=== PATIENT | female | born 1970 | race Caucasian/White ===

== ENCOUNTER 2017-07-27 16:51 | Emergency (ER) | payer MEDICAID ==
[~2017-07-27] VITALS: Ht 157.5 cm; Wt 64.6 kg
[~2017-07-27 16:51] MED LIST: BEN25 PO; FAMO-96 PO; LEVO50TA74 PO
[2017-07-27 16:53] VITALS: Ht 157.5 cm; Wt 64.6 kg
[2017-07-27] MEDS ORDERED: FLUORESCEIN STRIP RIGHT EYE ONE (17:30)
[2017-07-27] MEDS ORDERED: TETRACAINE 0.5% 4 ML OPH RIGHT EYE ONE (17:30)
[2017-07-27] MEDS ORDERED: CPR3OO3.5 RIGHT EYE (17:59)
[2017-07-27 18:33] VITALS: BP 116/79; PULSE 66; RESP 14; TEMP 98.8
--- NOTE | 2017-07-27 23:15 | ERD ---
ER Documentation Chief Complaint Chief Complaint Complains of right eye pain x 3 days HPI Patient is a 47-year-old female presenting to the emergency department with complaints of right eye pain. The patient states she accidentally poked herself in the eye with her fingernail and then redness appeared. Symptoms are intermittent and worse when she moves her eye. Associated with pain. She denies any visual acuity changes. She does not wear glasses or contacts. No fevers, chills, or other symptoms reported currently. ROS All systems reviewed and are negative except as per history of present illness. Medications Home Meds Active Scripts Ciprofloxacin Opht* (Ciloxan*) 0.3%-3.5 Opht Oint, 1 APPLIC RIGHT EYE TID for 7 Days, #1 BOTTLE Prov:ROBBI TAO PA-C 07/27/17 Diphenhydramine Hcl* (Benadryl*) 25 Mg Cap, 25 MG PO Q6 Y for ITCHING/RASH, #30 TAB Prov:HERNAN JAMESON PA-C 06/30/16 Famotidine* (Pepcid*) 20 Mg Tablet, 20 MG PO BID, #30 TAB Prov:HERNAN JAMESON PA-C 06/30/16 Reported Medications Levothyroxine Sodium* (Levothyroxine Sodium*) 50 Mcg Tablet, PO DAILY 08/20/11 Allergies Allergies: Coded Allergies: morphine (Verified Allergy, Mild, 07/27/17) PMhx/Soc History of Surgery: Yes (GALLBLADDER, TUBAL LIGATION) Anesthesia Reaction: No Hx Neurological Disorder: No Hx Respiratory Disorders: No Hx Cardiac Disorders: No Hx Psychiatric Problems: No Hx Miscellaneous Medical Probl: Yes (HYPOTHYROID) Hx Alcohol Use: No Hx Substance Use: No Hx Tobacco Use: No Smoking Status: Never smoker Physical Exam Vitals Vital Signs Date Time Temp Pulse Resp B/P Pulse Ox O2 Delivery O2 Flow Rate FiO2 07/27/17 18:33 98.8 66 14 116/79 100 Room Air 07/27/17 16:53 99.1 68 20 124/68 98 Physical Exam Const: Nontoxic, well-appearing female in no acute distress. Head: Atraumatic Eyes: Gentle injection of the right eye. Extraocular movements intact bilaterally. ENT: Normal External Ears, Nose and Mouth. Neur: Awake and alert Psych: Normal Mood and Affect Results 24 hrs Current Medications Medications (Trade) Dose Ordered Sig/Alcira Route PRN Reason Start Time Stop Time Status Last Admin Dose Admin Fluorescein Sodium (Lsflc-D-Tfkye) 1 strip ONCE ONCE RIGHT EYE 07/27/17 17:30 11 17:31 DC Tetracaine HCl (Tetracaine 0.5% Steri-Unit Penny) 1 drop ONCE ONCE RIGHT EYE 07/27/17 17:30 11 17:31 DC Procedures/MDM Patient is a 47-year-old female presenting to the emergency department with right eye injury. Physical examination shows some injection but no evidence of corneal ulcer. Patient stable for discharge with prescription for ciprofloxacin ophthalmic. Close follow-up with ophthalmology. Patient agreed with discharge plan a diagnosis. Eye Exam w/ Wood's lamp: Visual Acuity: No significant abnormalities. Visual Mcelroy: Intact in all four quadrants bilaterally Lac ducts/glands: No swelling Lids w/ evertion: Normal, no foreign body Conj/[place]: Clear, negative Fluorescein/Iva's Anterior Chamber: Clear No evidence of life-threatening pathology at time of discharge. Pt/family in agreement with discharge plan/diagnosis. Pt/family advised to return immediately with any new or worsening symptoms. Follow-up with primary care physician within the next 1-2 days. Disclaimer: Inadvertent spelling and grammatical errors are likely due to EHR/ dictation software use and do not reflect on the overall quality of patient care. Also, please note that the electronic time recorded on this note does not necessarily reflect the actual time of the patient encounter. Departure Diagnosis: Primary Impression: Conjunctivitis Conjunctivitis type: acute Acute conjunctivitis type: unspecified Laterality: unspecified laterality Qualified Code: H10.30 - Acute conjunctivitis, unspecified acute conjunctivitis type, unspecified laterality Condition: Fair Patient Instructions: Conjunctivitis, Non-Specific, Subconjunctival Hemorrhage [facility] Usted se schroeder hecho un examen mdico de control que le indica que no est en andres condicin que requiera tratamiento urgente en el Departamento de Emergencia. Un estudio ms profundo y el tratamiento de britt condicin pueden esperar sin ningn riesgo hasta que usted sea atendida/o en el consultorio de britt mdico o andres cl vanda. Es responsabilidad suya arreglar andres toni para el seguimiento del nahum. MANEJO DE CONDICIONES NO URGENTES EN EL FUTURO 1) Si usted tiene un mdico de atencin primaria: Usted debera llamar a britt mdico de atencin primaria antes de venir al departamento de emergencia. Despus de las horas de consultorio, britt doctor o britt asociado/a est disponible por telfono. El mdico o enfermero de rocky en el servicio telefnico puede asesorarle por joao medio para atender el problema, o nahum contrario se puede programar andres toni. 2) Si usted no tiene un mdico de atencin primaria: Llame al mdico o clnica de referencia que aparece abajo david las horas de consultorio para hacer andres toni para que le vean. CLINICAS: [facility] [phone] [facility] [phone] [facility] [phone] [facility] [facility] [phone] [facility] [address] [address] [place] [phone] [facility]. [phone] [facility] Hours: Mon - Fri 9:00 AM - 5:00 PM Additional Instructions: Follow-up with the [facility] in 1-2 days if symptoms persist or worsen. No mas mejor en 2-3 baltazar, regresar. Mas peor en 24 horas, regresear rapidamente. Ir a doctor primario en 1-2 baltazar. Usar instrucciones cuando zaynab medicamento. ROBBI TAO PA-C Jul 27, 2017 23:15
--- NOTE | 2017-07-27 23:15 | ERD ---
ER Documentation Chief Complaint Chief Complaint Complains of right eye pain x 3 days HPI Patient is a 47-year-old female presenting to the emergency department with complaints of right eye pain. The patient states she accidentally poked herself in the eye with her fingernail and then redness appeared. Symptoms are intermittent and worse when she moves her eye. Associated with pain. She denies any visual acuity changes. She does not wear glasses or contacts. No fevers, chills, or other symptoms reported currently. ROS All systems reviewed and are negative except as per history of present illness. Medications Home Meds Active Scripts Ciprofloxacin Opht* (Ciloxan*) 0.3%-3.5 Opht Oint, 1 APPLIC RIGHT EYE TID for 7 Days, #1 BOTTLE Prov:ROBBI TAO PA-C 07/27/17 Diphenhydramine Hcl* (Benadryl*) 25 Mg Cap, 25 MG PO Q6 Y for ITCHING/RASH, #30 TAB Prov:HERNAN JAMESON PA-C 06/30/16 Famotidine* (Pepcid*) 20 Mg Tablet, 20 MG PO BID, #30 TAB Prov:HERNAN JAMESON PA-C 06/30/16 Reported Medications Levothyroxine Sodium* (Levothyroxine Sodium*) 50 Mcg Tablet, PO DAILY 08/20/11 Allergies Allergies: Coded Allergies: morphine (Verified Allergy, Mild, 07/27/17) PMhx/Soc History of Surgery: Yes (GALLBLADDER, TUBAL LIGATION) Anesthesia Reaction: No Hx Neurological Disorder: No Hx Respiratory Disorders: No Hx Cardiac Disorders: No Hx Psychiatric Problems: No Hx Miscellaneous Medical Probl: Yes (HYPOTHYROID) Hx Alcohol Use: No Hx Substance Use: No Hx Tobacco Use: No Smoking Status: Never smoker Physical Exam Vitals Vital Signs Date Time Temp Pulse Resp B/P Pulse Ox O2 Delivery O2 Flow Rate FiO2 07/27/17 18:33 98.8 66 14 116/79 100 Room Air 07/27/17 16:53 99.1 68 20 124/68 98 Physical Exam Const: Nontoxic, well-appearing female in no acute distress. Head: Atraumatic Eyes: Gentle injection of the right eye. Extraocular movements intact bilaterally. ENT: Normal External Ears, Nose and Mouth. Neur: Awake and alert Psych: Normal Mood and Affect Results 24 hrs Current Medications Medications (Trade) Dose Ordered Sig/Alcira Route PRN Reason Start Time Stop Time Status Last Admin Dose Admin Fluorescein Sodium (Zrdoc-M-Jyswh) 1 strip ONCE ONCE RIGHT EYE 07/27/17 17:30 11 17:31 DC Tetracaine HCl (Tetracaine 0.5% Steri-Unit Penny) 1 drop ONCE ONCE RIGHT EYE 07/27/17 17:30 11 17:31 DC Procedures/MDM Patient is a 47-year-old female presenting to the emergency department with right eye injury. Physical examination shows some injection but no evidence of corneal ulcer. Patient stable for discharge with prescription for ciprofloxacin ophthalmic. Close follow-up with ophthalmology. Patient agreed with discharge plan a diagnosis. Eye Exam w/ Wood's lamp: Visual Acuity: No significant abnormalities. Visual Mcelroy: Intact in all four quadrants bilaterally Lac ducts/glands: No swelling Lids w/ evertion: Normal, no foreign body Conj/[place]: Clear, negative Fluorescein/Iva's Anterior Chamber: Clear No evidence of life-threatening pathology at time of discharge. Pt/family in agreement with discharge plan/diagnosis. Pt/family advised to return immediately with any new or worsening symptoms. Follow-up with primary care physician within the next 1-2 days. Disclaimer: Inadvertent spelling and grammatical errors are likely due to EHR/ dictation software use and do not reflect on the overall quality of patient care. Also, please note that the electronic time recorded on this note does not necessarily reflect the actual time of the patient encounter. Departure Diagnosis: Primary Impression: Conjunctivitis Conjunctivitis type: acute Acute conjunctivitis type: unspecified Laterality: unspecified laterality Qualified Code: H10.30 - Acute conjunctivitis, unspecified acute conjunctivitis type, unspecified laterality Condition: Fair Patient Instructions: Conjunctivitis, Non-Specific, Subconjunctival Hemorrhage Ref[facility]: [facility] Usted se schroeder hecho un examen mdico de control que le indica que no est en andres condicin que requiera tratamiento urgente en el Departamento de Emergencia. Un estudio ms profundo y el tratamiento de britt condicin pueden esperar sin ningn riesgo hasta que usted sea atendida/o en el consultorio de britt mdico o andres cl vanda. Es responsabilidad suya arreglar andres toni para el seguimiento del nahum. MANEJO DE CONDICIONES NO URGENTES EN EL FUTURO 1) Si usted tiene un mdico de atencin primaria: Usted debera llamar a britt mdico de atencin primaria antes de venir al departamento de emergencia. Despus de las horas de consultorio, britt doctor o britt asociado/a est disponible por telfono. El mdico o enfermero de rocky en el servicio telefnico puede asesorarle por joao medio para atender el problema, o nahum contrario se puede programar andres toni. 2) Si usted no tiene un mdico de atencin primaria: Llame al mdico o clnica de referencia que aparece abajo david las horas de consultorio para hacer andres toni para que le vean. CLINICAS: [facility] [phone] [facility] [phone] [facility] [phone] [address] [facility] [facility] [phone] [place] [phone] [facility] [phone] [facility] Hours: Mon - Fri 9:00 AM - 5:00 PM Additional Instructions: Follow-up with the [facility] in 1-2 days if symptoms persist or worsen. No mas mejor en 2-3 baltazar, regresar. Mas peor en 24 horas, regresear rapidamente. Ir a doctor primario en 1-2 baltazar. Usar instrucciones cuando zaynab medicamento. ROBBI TAO PA-C Jul 27, 2017 23:15
--- NOTE | 2017-07-27 23:15 | ERD ---
ER Documentation Chief Complaint Chief Complaint Complains of right eye pain x 3 days HPI Patient is a 47-year-old female presenting to the emergency department with complaints of right eye pain. The patient states she accidentally poked herself in the eye with her fingernail and then redness appeared. Symptoms are intermittent and worse when she moves her eye. Associated with pain. She denies any visual acuity changes. She does not wear glasses or contacts. No fevers, chills, or other symptoms reported currently. ROS All systems reviewed and are negative except as per history of present illness. Medications Home Meds Active Scripts Ciprofloxacin Opht* (Ciloxan*) 0.3%-3.5 Opht Oint, 1 APPLIC RIGHT EYE TID for 7 Days, #1 BOTTLE Prov:ROBBI TAO PA-C 07/27/17 Diphenhydramine Hcl* (Benadryl*) 25 Mg Cap, 25 MG PO Q6 Y for ITCHING/RASH, #30 TAB Prov:HERNAN JAMESON PA-C 06/30/16 Famotidine* (Pepcid*) 20 Mg Tablet, 20 MG PO BID, #30 TAB Prov:HERNAN JAMESON PA-C 06/30/16 Reported Medications Levothyroxine Sodium* (Levothyroxine Sodium*) 50 Mcg Tablet, PO DAILY 08/20/11 Allergies Allergies: Coded Allergies: morphine (Verified Allergy, Mild, 07/27/17) PMhx/Soc History of Surgery: Yes (GALLBLADDER, TUBAL LIGATION) Anesthesia Reaction: No Hx Neurological Disorder: No Hx Respiratory Disorders: No Hx Cardiac Disorders: No Hx Psychiatric Problems: No Hx Miscellaneous Medical Probl: Yes (HYPOTHYROID) Hx Alcohol Use: No Hx Substance Use: No Hx Tobacco Use: No Smoking Status: Never smoker Physical Exam Vitals Vital Signs Date Time Temp Pulse Resp B/P Pulse Ox O2 Delivery O2 Flow Rate FiO2 07/27/17 18:33 98.8 66 14 116/79 100 Room Air 07/27/17 16:53 99.1 68 20 124/68 98 Physical Exam Const: Nontoxic, well-appearing female in no acute distress. Head: Atraumatic Eyes: Gentle injection of the right eye. Extraocular movements intact bilaterally. ENT: Normal External Ears, Nose and Mouth. Neur: Awake and alert Psych: Normal Mood and Affect Results 24 hrs Current Medications Medications (Trade) Dose Ordered Sig/Alcira Route PRN Reason Start Time Stop Time Status Last Admin Dose Admin Fluorescein Sodium (Vvidn-V-Fbrmk) 1 strip ONCE ONCE RIGHT EYE 07/27/17 17:30 11 17:31 DC Tetracaine HCl (Tetracaine 0.5% Steri-Unit Penny) 1 drop ONCE ONCE RIGHT EYE 07/27/17 17:30 11 17:31 DC Procedures/MDM Patient is a 47-year-old female presenting to the emergency department with right eye injury. Physical examination shows some injection but no evidence of corneal ulcer. Patient stable for discharge with prescription for ciprofloxacin ophthalmic. Close follow-up with ophthalmology. Patient agreed with discharge plan a diagnosis. Eye Exam w/ Wood's lamp: Visual Acuity: No significant abnormalities. Visual Mcelroy: Intact in all four quadrants bilaterally Lac ducts/glands: No swelling Lids w/ evertion: Normal, no foreign body Conj/[place]: Clear, negative Fluorescein/Iva's Anterior Chamber: Clear No evidence of life-threatening pathology at time of discharge. Pt/family in agreement with discharge plan/diagnosis. Pt/family advised to return immediately with any new or worsening symptoms. Follow-up with primary care physician within the next 1-2 days. Disclaimer: Inadvertent spelling and grammatical errors are likely due to EHR/ dictation software use and do not reflect on the overall quality of patient care. Also, please note that the electronic time recorded on this note does not necessarily reflect the actual time of the patient encounter. Departure Diagnosis: Primary Impression: Conjunctivitis Conjunctivitis type: acute Acute conjunctivitis type: unspecified Laterality: unspecified laterality Qualified Code: H10.30 - Acute conjunctivitis, unspecified acute conjunctivitis type, unspecified laterality Condition: Fair Patient Instructions: Conjunctivitis, Non-Specific, Subconjunctival Hemorrhage Ref[facility]: [facility] Usted se schroeder hecho un examen mdico de control que le indica que no est en andres condicin que requiera tratamiento urgente en el Departamento de Emergencia. Un estudio ms profundo y el tratamiento de britt condicin pueden esperar sin ningn riesgo hasta que usted sea atendida/o en el consultorio de britt mdico o andres cl vanda. Es responsabilidad suya arreglar andres toni para el seguimiento del nahum. MANEJO DE CONDICIONES NO URGENTES EN EL FUTURO 1) Si usted tiene un mdico de atencin primaria: Usted debera llamar a britt mdico de atencin primaria antes de venir al departamento de emergencia. Despus de las horas de consultorio, britt doctor o britt asociado/a est disponible por telfono. El mdico o enfermero de rocky en el servicio telefnico puede asesorarle por joao medio para atender el problema, o nahum contrario se puede programar andres toni. 2) Si usted no tiene un mdico de atencin primaria: Llame al mdico o clnica de referencia que aparece abajo david las horas de consultorio para hacer andres toni para que le vean. CLINICAS: [facility] [phone] [facility] [phone] [facility] [phone] [address] [facility] [facility] [facility] [phone] [facility] [facility] [place] [phone] [facility] [phone] [facility] Hours: Mon - Fri 9:00 AM - 5:00 PM Additional Instructions: Follow-up with the [facility] in 1-2 days if symptoms persist or worsen. No mas mejor en 2-3 baltazar, regresar. Mas peor en 24 horas, regresear rapidamente. Ir a doctor primario en 1-2 baltazar. Usar instrucciones cuando zaynab medicamento. ROBBI TAO PA-C Jul 27, 2017 23:15
== END 2017-07-27 18:34 | disposition home or self-care (01) ==
LOC: FTE 16:51
DX: H10.31 Unspecified acute conjunctivitis, right eye (principal); E03.9 Hypothyroidism, unspecified
CPT/HCPCS: Z7502; Z7610; 99283